=== PATIENT | male | born 1965 | race Caucasian/White ===

== ENCOUNTER → 2024-06-03 | Outpatient (CLI) | payer MEDICAID ==
[~2024-06-03] MED LIST: ALCOPAD25 TOP; ASPI81CH8 PEG; ATOR80TA59 PO; BLOOKIT21 XX; GLUC1TES2 XX; LANC30MI XX; METF500T13 PO; METO1TAB87 PO; SPIR1CAP INH; SYMB16INH INH; VENTAER INH; XARE10TA PO
== END ==
LOC: M EKG 13:47
PROVIDERS: ATTEND Internal Medicine
DX: I48.91 Unspecified atrial fibrillation (principal); Z53.9 Procedure and treatment not carried out, unspecified reason

== ENCOUNTER 2024-08-30 06:31 | Day surgery (SDC) | payer OTHER ==
[~2024-08-30] VITALS: Ht 175.3 cm; Wt 122.5 kg
[~2024-08-30 06:31] MED LIST changes: +ALBU8.5H INH; +AMIO200T37 PO; +ASPI81CH33 PO; +METO50TA7 PO; +XARE20TA PO
[2024-08-30] MEDS ORDERED: NS (Normal Saline) 0.9% 1,000 ML IV SCH (06:45)
[2024-08-30] MEDS ORDERED: LIDOCAINE 1% SDV 5ML VIAL SC PRN (06:45)
[2024-08-30] MEDS ORDERED: propofoL 200 MG/20 ML VIAL As Ordered ONE (07:16)
[2024-08-30] MEDS ORDERED: LIDOCAINE 2% 100MG/5ML SDV (FOR ANES.) As Ordered ONE (07:16)
[2024-08-30 08:05] VITALS: BP 161/98; TEMP 97.3; O2SAT 96
== END 2024-08-30 08:25 | disposition home or self-care (01) ==
LOC: M SDC 06:31
PROVIDERS: ATTEND Internal Medicine Cardiovascular Disease
DX: I48.91 Unspecified atrial fibrillation (principal); I10 Essential (primary) hypertension; E78.5 Hyperlipidemia, unspecified; E11.9 Type 2 diabetes mellitus without complications; G40.909 Epilepsy, unspecified, not intractable, without status epilepticus; Z86.73 Personal history of transient ischemic attack (TIA), and cerebral infarction without residual deficits; Z79.01 Long term (current) use of anticoagulants; Z79.51 Long term (current) use of inhaled steroids; Z79.899 Other long term (current) drug therapy; Z79.4 Long term (current) use of insulin; Z79.84 Long term (current) use of oral hypoglycemic drugs

== ENCOUNTER → 2024-11-16 | Outpatient (CLI) | payer OTHER | LOC: M SLEEP HO 10:41 | PROVIDERS: ATTEND Internal Medicine Critical Care Medicine | DX: G47.30 Sleep apnea, unspecified (principal) ==